=== PATIENT | male | born 1965 | race Caucasian/White ===

== ENCOUNTER → 2016-11-21 | Outpatient (CLI) | payer BC ==
[~2016-11-21] MED LIST: MULTIPLE VITAM1 EACH PO; PREVACID30 MG PO; TRIFLEX PO; VITAMIN B-6100 MG PO
== END | disposition home or self-care (01) ==
LOC: CDC 08:25
DX: R94.31 Abnormal electrocardiogram [ECG] [EKG] (principal); I45.81 Long QT syndrome; K42.9 Umbilical hernia without obstruction or gangrene
CPT/HCPCS: 93000

== ENCOUNTER 2016-11-28 09:58 | Day surgery (SDC) | payer BC ==
[~2016-11-28] VITALS: Ht 172.7 cm; Wt 86.2 kg
[2016-11-28 10:30] VITALS: BP 141/84
[2016-11-28] MEDS ORDERED: PERCOCET 5/31 TABLET PO (13:59)
[2016-11-28] MEDS ORDERED: COLACE100 MG PO (13:59)
[2016-11-28 15:55] VITALS: BP 168/88
[2016-11-28 16:50] VITALS: BP 160/77
== END 2016-11-28 17:00 | disposition home or self-care (01) ==
LOC: SDC 09:58
DX: K42.9 Umbilical hernia without obstruction or gangrene (principal); K21.9 Gastro-esophageal reflux disease without esophagitis
CPT/HCPCS: C1781; J0690; J1100; J1170; J1885; J2250; J2405; J2710; J3010